=== PATIENT | male | born 1985 | race Caucasian/White ===

== ENCOUNTER 2021-09-22 07:55 | Emergency (ER) | payer BC ==
[2021-09-22 08:15] LABS: BILIRUBIN,URINE NEGATIVE (NEGATIVE); GLUCOSE, URINE (UA) NEGATIVE (NEGATIVE); KETONES,URINE (UA) NEGATIVE (NEGATIVE); LEUKOCYTE ESTERASE, URINE NEGATIVE (NEGATIVE); NITRITE,URINE NEGATIVE (NEGATIVE); OCCULT BLOOD,URINE LARGE (NEGATIVE); PROTEIN,URINE NEGATIVE (NEGATIVE); UROBILINOGEN,URINE 0.2 (NORMAL) E.U./dL (NORMAL)
[2021-09-22] MEDS ORDERED: IBUPROFEN 600 MG TABLET PO STA (08:20)
[2021-09-22 08:29] LABS: CLARITY,URINE CLEAR (CLEAR)
[2021-09-22 08:30] LABS: BACTERIA,URINE None Seen /HPF (None Seen); SQUAMOUS EPITHELIAL CELL,UR RARE Squamous (<= Few); WBC,URINE 0-3 /HPF (0-3)
--- NOTE | 2021-09-22 09:16 | ED Physician Documentation ---
PD HPI ABD PAIN - Stated complaint Stated Complaint: RT SIDE PX - Chief complaint Chief Complaint: Abd Pain - History obtained from History obtained from: Patient - History of Present Illness Timing - onset: How many hours ago (has had some right flank and right abd cramping pain for couple of days, but abruptly worse and severe 2 hours [employer]. feeling similar to prior kidney stone.) Timing - duration: Hours (2) Timing - details: Abrupt onset (of the severe pain this morning. Has had some mild aching for couple days.), Still present Quality: Cramping, Aching, Pain Location: RLQ Radiation: Right flank Improved by: No: Eating, Laying still, Position Worsened by: No: Eating, Moving, Breathing, Palpation Associated symptoms: Nausea. No: Fever, Vomiting, Diarrhea, Constipation, Dysuria, Loss of appetite Similar symptoms before: Diagnosis (prior episode of kidney stone felt very similar to pain this morning.) Recently seen: Not recently seen Review of Systems Constitutional: denies: Fever, Chills Nose: denies: Rhinorrhea / runny nose, Congestion Throat: denies: Sore throat Respiratory: denies: Cough GI: reports: Abdominal Pain, Nausea. denies: Abdominal Swelling, Vomiting, Constipation, Diarrhea : denies: Dysuria, Frequency Skin: denies: Rash PD PAST MEDICAL HISTORY - Past Medical History Cardiovascular: None Respiratory: None Neuro: None Endocrine/Autoimmune: None : Kidney stones - Present Medications Home Medications: Ambulatory Orders Medication Instructions Recorded Confirmed Ondansetron Odt [Zofran] 4 mg TL Q6H PRN #10 tablet 09/22/21 Oxycodone HCl/Acetaminophen 1 each PO Q6H PRN #12 tablet 09/22/21 [Percocet 5-325 mg Tablet] - Allergies Allergies/Adverse Reactions: Allergies Allergy/AdvReac Type Severity Reaction Status Date / Time cefaclor Allergy Rash Verified 09/22/21 08:01 - Social History Does the pt smoke?: No Smoking Status: Never smoker PD ED PE NORMAL - Vitals Vital signs reviewed: Yes - General General: Alert and oriented X 3, No acute distress (he states the pain has significantly improved in past few minutes just prior to my seeing him. HE states just mild residual cramping right abd now. ), Well developed/nourished - Cardiac Cardiac: RRR, No murmur - Respiratory Respiratory: No respiratory distress, Clear bilaterally - Abdomen Abdomen: Normal bowel sounds, Soft, Non distended, No organomegaly, Other (minimally tender RLQ without guarding nor percussion tender. ) - Male Male : Deferred - Rectal Rectal: Deferred - Back Back: No CVA TTP - Derm Derm: Normal color, Warm and dry Results - Vitals Vitals: Vital Signs - 24 hr 09/22/21 09/22/21 08:01 10:03 Temperature 36.2 C L 36.7 C Heart Rate 87 89 Respiratory 20 16 Rate Blood Pressure 135/92 H 143/92 H O2 Saturation 96 98 Oxygen O2 Source Room air - Labs Labs: Laboratory Tests 09/22/21 08:07 Urine Color YELLOW Urine Clarity CLEAR Urine pH 5.0 Ur Specific [place] >=1.030 H Urine Protein NEGATIVE Urine Glucose (UA) NEGATIVE Urine Ketones NEGATIVE Urine Occult Blood LARGE H Urine Nitrite NEGATIVE Urine Bilirubin NEGATIVE Urine Urobilinogen 0.2 (NORMAL) Ur Leukocyte Esterase NEGATIVE Urine RBC 11-25 H Urine WBC 0-3 Ur Squamous Epith Cells RARE Squamous Urine Bacteria None Seen Ur Microscopic Review INDICATED Urine Culture Comments NOT INDICATED PD MEDICAL DECISION MAKING - ED course Complexity details: considered differential (pattern and course seem c/w kidney stone and likely just passed, though could have just shifted position. SHared decision to hold on imaging at this time, since so much better. ), d/w patient Departure - Departure Disposition: 01 Home, Self Care Clinical Impression: Right sided abdominal pain, Ureterolithiasis Condition: Stable Instructions: ED Stone Renal W Colic Prescriptions: Oxycodone HCl/Acetaminophen [Percocet 5-325 mg Tablet] 1 each PO Q6H PRN #12 tablet PRN Reason: pain Ondansetron Odt [Zofran] 4 mg TL Q6H PRN #10 tablet PRN Reason: Nausea / Vomiting Comments: There is blood in the urine consistent with the kidney stone diagnosis. No signs of infection of the urine. Given your improvement in pain at this point, presumption is you may have passed the stone in which case you may have some mild cramping and aching for a day or so. Tylenol or ibuprofen or both if needed for pains. However could be that the stone just moved location and is now not blocking urine flow so the pain is better. If so there may be some recurrence of pain over the next day or 2 as it moves more. Recheck if significant pain again. Otherwise use Tylenol ibuprofen and I did send a prescription for some opioid pain medicine to [facility] in [place] should you have moderate enough pain to need something stronger. Recheck if not resolved over the next 1 or 2 days and return if worse. Discharge Date/Time: 09/22/21 10:03
[2021-09-22 10:09] VITALS: BP 143/92
== END 2021-09-22 10:03 | disposition home or self-care (01) ==
LOC: ED 07:55
DX: N20.1 Calculus of ureter (principal); Z87.442 Personal history of urinary calculi
CPT/HCPCS: 81001; 99283; A9270; 80053; 81003; 83690; 85025; 87086